=== PATIENT | female | born 1985 | race Hispanic/Latino ===

== ENCOUNTER 2025-10-31 18:08 | Emergency (ER) | payer BC, SELFPAY ==
--- NOTE | ~2025-10-31 | XR_ITS ---
EXAMINATION: XR chest 2V DATE: 10/31/2025 18:29 INDICATION: One week of chest tightness TECHNIQUE: PA and lateral views of the chest were obtained. COMPARISON: None FINDINGS: The lungs are clear with no focal airspace opacities, pulmonary edema, pleural effusion or pneumothorax. The cardiomediastinal silhouette is normal. Mild thoracic spondylosis. IMPRESSION: 1. No acute cardiopulmonary disease. Reviewed, dictated and finalized at location A. [employer]
[2025-10-31 18:08] VITALS: BP 136/81; PULSE 89; RESP 16; TEMP 36.7; O2SAT 100
[2025-10-31 19:02] LABS: Influenza A QL RT-PCR Negative (Negative); Influenza B QL RT-PCR Negative (Negative); RSV RNA, RT-PCR Negative (Negative); SARS-CoV-2 RNA PCR Negative (Negative)
--- NOTE | 2025-10-31 19:10 | ED.GENADULT ---
HPI - General Adult General Chief complaint: Upper Respiratory Infection Stated complaint: cold symptoms. Time Seen by Provider: 10/31/25 18:10 Source: patient Mode of arrival: ambulatory Limitations: no limitations History of Present Illness HPI narrative: 40-year-old otherwise healthy here with the complaints of intermittent shortness of breath, has some cold symptoms. Denies any cough or fever or chills or chest pain. Onset (ago): week(s) (1) Severity: mild Pain Consistency: intermittent Relieving factors: none Exacerbating factors: none Associated symptoms: denies other symptoms Related Data Allergies Allergy/AdvReac Type Severity Reaction Status Date / Time No Known Allergies Allergy Verified 10/31/25 18:09 Review of Systems Review of Systems: All systems reviewed & are unremarkable except as noted in HPI and below Constitutional: Constitutional: Reports no additional constitutional complaints Eyes: Eyes: Reports no additional eye complaints ENT: Reports system reviewed and no additional complaints, except as documented Cardiovascular: Cardiovascular: Reports no additional cardiovascular complaints Respiratory: Respiratory: Reports as per HPI Musculoskeletal: Musculoskeletal: Reports no additional musculoskeletal complaints Exam Narrative: GENERAL: Well-appearing, well-nourished, and in no acute distress. HEAD: Normocephalic, atraumatic. EYES: PERRLA and EOMI. ENT: Nares clear, no rhinorrhea or epistaxis. Mucous membranes moist. NECK: Supple. CHEST: Clear to auscultation. No respiratory distress. HEART: Regular rate and rhythm. No murmur heard. Normal peripheral pulses. ABDOMEN: Soft, nontender, nondistended, normal active bowel sounds. EXTREMITIES: Normal range of motion. No edema. SKIN: Warm, dry, no rash. NEURO: No focal deficits. Alert and oriented x3. PSYCH: Normal mood and affect. Course Course Emergency Course: Patient comfortably resting on the bed in no discomfort or SpO2 is 100% on room air lungs sounded clear on auscultation did inform her about the lab work, chest x-ray findings. Vital Signs Vital signs: Vital Signs Temperature 36.7 C 10/31/25 18:08 Pulse Rate 89 10/31/25 18:08 Respiratory Rate 16 10/31/25 18:08 Blood Pressure 136/81 10/31/25 18:08 Pulse Oximetry 100 10/31/25 18:08 Oxygen Delivery Room Air 10/31/25 18:08 Temperature 36.7 C 10/31/25 18:08 Pulse Rate 89 10/31/25 18:08 Respiratory Rate 16 10/31/25 18:08 Blood Pressure 136/81 10/31/25 18:08 Pulse Oximetry 100 10/31/25 18:08 Oxygen Delivery Room Air 10/31/25 18:08 MDM Differential Diagnosis Differential Diagnosis: URI, viral syndrome, anxiety Lab Data Labs: Lab Results 10/31/25 Range/Units 18:20 Influenza A (RT-PCR) Negative (Negative) Influenza B (RT-PCR) Negative (Negative) RSV (RT-PCR) Negative (Negative) SARS-CoV-2 RNA (RT-PCR) Negative (Negative) Imaging Data Radiologist's impression: ITS Impressions Chest X-Ray 10/31/25 18:30 IMPRESSION: 1. No acute cardiopulmonary disease. Discharge Plan Discharge Clinical Impression: Acute viral syndrome Patient Disposition: Home Condition: Stable Instructions: Viral Syndrome (ED) Patient Language: [place] Follow-up/Referrals: Francisco Javier,Evelia Meraz APRN [Primary Care Provider, Unknown] Time of Disposition: 19:11
[2025-10-31 19:23] VITALS: BP 122/74; PULSE 85; RESP 18; TEMP 37.1; O2SAT 98
== END 2025-10-31 19:23 | disposition home or self-care (01) ==
PROVIDERS: Emergency Provider Family Medicine; PCP Nurse Practitioner Family
DX: B34.9 Viral infection, unspecified (principal); Z20.822 Contact with and (suspected) exposure to COVID-19
CPT/HCPCS: 71046; 87637; 99283